=== PATIENT | female | born 1960 | race Caucasian/White ===

== ENCOUNTER → 2017-09-05 | Outpatient (CLI) | payer OTHER ==
[~2017-09-05] MED LIST: B-12 INJ; CIPR500T78 PO; EP1A IM; HORMONE CREAM; LISI10TA PO; MULT-963 PO; STOMACH PILL
--- NOTE | 2017-09-05 19:25 | Diagnostic Imaging Report ---
INDICATION: Renal cyst TECHNIQUE: Multiple real-time grayscale sonographic images were obtained of the kidneys. COMPARISON: 09/04/2016 FINDINGS: RIGHT KIDNEY: 8.6 x 3.7 x 4.0 cm. LEFT KIDNEY: 9.4 x 5.7 x 6.9 cm. Hypoechoic mass in the inferior pole of the right kidney is present. Margins are slightly indistinct. This is measuring larger currently at 1.8 x 2.7 x 1.7 cm, previously 1.4 x 1.0 x 1.1 cm. No suggestion for hydronephrosis. The renal parenchyma is otherwise thin involving both kidneys. URINARY BLADDER: Unremarkable in appearance. Bilateral ureteral jets are present. IMPRESSION: 1. Hypoechoic mass in the right kidney measuring larger from prior study. This may be reflective of a cyst. However, given increase in size and somewhat thick walled appearance, correlation with imaging such as CT and/or MRI with contrast recommended. Dictated by: Dictated on workstation # [id number]
== END ==
LOC: RAD 17:23
PROVIDERS: ATTEND Family Medicine
DX: N28.89 Other specified disorders of kidney and ureter (principal)
CPT/HCPCS: 76770

== ENCOUNTER → 2017-09-11 | Outpatient (CLI) | payer OTHER ==
[~2017-09-11] MED LIST changes: +IOHEXOL 350 MG/ML 100 ML (OMNIPAQUE 350) VIAL IV ONE; +NS 100 ML (IVPB) BAG IV ONE
[2017-09-11 08:40] LABS: BLOOD UREA NITROGEN 13 MG/DL (7-18); BUN/CREATININE RATIO 15; CREATININE SERUM 0.84 MG/DL (0.60-1.30); GFR ESTIMATED > 60
--- NOTE | 2017-09-11 14:23 | Diagnostic Imaging Report ---
PROCEDURE: CT abdomen with contrast only. TECHNIQUE: Multiple contiguous axial images were obtained through the abdomen after the administration of intravenous contrast. INDICATION: Enlarging hypoechoic mass in the right kidney. 100 mL of Omnipaque-350 is administered intravenously. FINDINGS: The hypoechoic lesion seen in the right kidney on recent ultrasound appears to represent a parapelvic cyst with no evidence of solid component seen. It measures 1.5 x 1.8 x 2.6 cm in size. There is symmetric parenchymal enhancement and contrast excretion. There is no hydronephrosis in the kidneys. The lung bases demonstrate no significant abnormality. The liver, the gallbladder, the pancreas, the spleen, and the adrenal glands appear unremarkable. The abdominal aorta is normal in caliber. No para-aortic significantly enlarged lymph node is seen. There is a periumbilical tiny fat-containing hernia. The appendix is normal. Moderate amount of fecal material in the colon is seen. The osseous structures appear grossly unremarkable. IMPRESSION: A 2.6 cm lower pole right renal parapelvic cyst is seen. No solid mass is identified. Dictated by: Dictated on workstation # [id number]
== END ==
LOC: RAD 08:04
PROVIDERS: ATTEND Family Medicine
DX: N28.1 Cyst of kidney, acquired (principal)
CPT/HCPCS: 36415; 74160; 82565; 84520

== ENCOUNTER → 2018-07-31 | Outpatient (CLI) | payer OTHER ==
[~2018-07-31] MED LIST changes: -IOHEXOL 350 MG/ML 100 ML (OMNIPAQUE 350) VIAL IV ONE; -NS 100 ML (IVPB) BAG IV ONE
--- NOTE | 2018-07-31 14:26 | Diagnostic Imaging Report ---
PROCEDURE: US Renal Bilateral. INDICATION: Renal cyst. TECHNIQUE: Multiple real-time grayscale sonographic images were obtained of the kidneys. COMPARISON: 09/05/2017. FINDINGS: RIGHT KIDNEY: 9.8 x 4.7 x 5.3 cm. LEFT KIDNEY: 8.6 x 4.9 x 4.0 cm. Rounded hypoechoic mass in the inferior pole measures 16 x 10 x 15 mm. Previously measured 27 x 18 x 17 mm, appearing smaller. Renal parenchyma is otherwise unremarkable. No hydronephrosis. URINARY BLADDER: Unremarkable appearance. The right ureteral jet is visualized. Nonvisualization of the left ureteral jet. IMPRESSION: 1. Hypoechoic mass of the right kidney persisting but does appear to be slightly smaller from prior study. Favoring probable cyst. Dictated by: Dictated on workstation # [id number]
== END ==
LOC: RAD 13:30
PROVIDERS: ATTEND Family Medicine
DX: N28.89 Other specified disorders of kidney and ureter (principal); N28.1 Cyst of kidney, acquired
CPT/HCPCS: 76770

== ENCOUNTER 2019-07-15 05:40 | Outpatient (CLI) | payer OTHER ==
[~2019-07-15] VITALS: Ht 162 cm; Wt 72.7 kg
[2019-07-15] MEDS ORDERED: PANT40TA3 PO (13:36)
[2019-07-15] MEDS ORDERED: LISI10TA2 PO (13:36)
[2019-07-15] MEDS ORDERED: THYR16.2 PO (13:36)
[2019-07-15] MEDS ORDERED: MULT-178 PO (13:36)
[2019-07-15] MEDS ORDERED: ADRENAL PO (13:36)
== END 2019-07-15 13:37 | disposition home or self-care (01) ==
LOC: PREOP 05:40
PROVIDERS: ATTEND Surgery
DX: Z01.818 Encounter for other preprocedural examination (principal)

== ENCOUNTER 2019-07-22 09:57 | Day surgery (SDC) | payer OTHER ==
[~2019-07-22] VITALS: Ht 162.6 cm; Wt 72.7 kg
[2019-07-22] VITALS (7 sets, daily range): BP systolic 105–138; BP diastolic 70–83
[~2019-07-22 09:57] MED LIST changes: +ADRENAL PO; +LISI10TA2 PO; +MULT-178 PO; +PANT40TA3 PO; +THYR16.2 PO
[2019-07-22] MEDS ORDERED: LACTATED RINGERS 1,000 ML IV STA (10:07)
[2019-07-22] MEDS ORDERED: HURRICAINE EXT TUBE (BENZOCAINE) XX PRN (10:15)
[2019-07-22] MEDS ORDERED: LACTATED RINGERS 1,000 ML IV ONE (10:18)
[2019-07-22] MEDS ORDERED: MIDAZOLAM 2 MG/2 ML (VERSED) VIAL ONE (11:29)
[2019-07-22] MEDS ORDERED: PROPOFOL INJECTION 50 ML IV ONE (11:29)
--- NOTE | 2019-07-22 11:36 | Progress Note-Pre Operative ---
Pre-Operative Progress Note H&P Reviewed The H&P was reviewed, patient examined and no changes noted. Date Seen by Provider: Jul 22, 2019 Time Seen by Provider: 11:00 Date H&P Reviewed: Jul 22, 2019 Time H&P Reviewed: 11:00 Pre-Operative Diagnosis: gerd, epigastric abd pain JAZMINE CHRISTOPHER DO Jul 22, 2019 11:36
--- NOTE | 2019-07-22 11:42 | Progress Note-Post Operative ---
Post-Operative Progess Note Surgeon (s)/Policy Writer Sales (s) Surgeon JAZMINE CHRISTOPHER DO Policy Writer Sales: na Pre-Operative Diagnosis gerd, epigastric abd pain Post-Operative Diagnosis duodenitis, gastric polyps, small hiatal hernia Procedure & Operative Findings Date of Procedure 07/22/19 Procedure Performed/Findings egd c biopsies Anesthesia Type per portable router operator Estimated Blood Loss Estimated blood loss (mL): scant Specimens/Packing Specimens Removed duodenum , antrum, gastric polyp, ge JAZMINE CHRISTOPHER DO Jul 22, 2019 11:42
--- NOTE | 2019-07-22 11:43 | Discharge Inst-Simple/Standard ---
Discharge Inst-Standard Patient Instructions/Follow Up Plan of Care/Instructions/FU: 2 weeks Akil Activity as Tolerated: Yes Discharge Diet: Regular Diet JAZMINE CHRISTOPHER DO Jul 22, 2019 11:43
--- NOTE | 2019-07-22 12:51 | Anesthesia-General Post-Op ---
MAC Patient Condition Mental Status/LOC: Same as Preop Cardiovascular: Satisfactory Nausea/Vomiting: Absent Respiratory: Satisfactory Pain: Controlled Complications: Absent Post Op Complications Complications None Follow Up Care/Instructions Patient Instructions None needed. Anesthesiology Discharge Order Discharge Order Patient is doing well, no complaints, stable vital signs, no apparent adverse anesthesia problems. No complications reported per nursing. AKIKO ALBERT CRNA Jul 22, 2019 12:51
--- NOTE | 2019-07-22 16:04 | OPERATIVE REPORT ---
DATE OF SERVICE: 07/22/2019 PREOPERATIVE DIAGNOSES: Gastroesophageal reflux disease and epigastric abdominal pain. POSTOPERATIVE DIAGNOSES: Duodenitis, gastric polyp and small hiatal hernia. PROCEDURE: EGD with biopsies. SURGEON: Jazmine Barnard DO ANESTHESIA: Per SYSTEM TECHNOLOGIST. ESTIMATED BLOOD LOSS: Scant. COMPLICATIONS: None. SPECIMENS: Duodenum antrum and gastric polyp at GE junction. INDICATIONS: The patient is a 59-year-old female with epigastric abdominal pain, reflux symptoms. She understands risks and benefits of procedure and wished to proceed with procedure. Consent was signed and on the chart. DESCRIPTION OF PROCEDURE: The patient was taken to the endoscopy suite, placed in left lateral recumbent position. Timeout was performed. Scope was inserted in mouth, down the esophagus, stomach and into the duodenum without difficulty. There were no polyps, masses or ulcerations within the second portion of the duodenum. Scope was slowly retracted back to the first portion, which had some slight erythematous changes, which biopsies were obtained. Scope was then slowly retracted back into the stomach where it was further insufflated. Slight erythematous changes in the biopsy of the antrum was obtained. No polyps, masses or ulcerations in the duodenum, but in the remainder of the stomach a large portion of gastric polyps of varying sizes were obtained. Biopsy of the gastric polyp was obtained. Scope was retroflexed noting a small hiatal hernia, no other pathology noted. Scope was returned to its normal position, slowly withdrawn to the distal esophagus. There were no polyps, masses or ulcerations in the GE junction. Biopsy of the GE junction was obtained. Scope was then slowly retracted back to completely remove noting no other pathology. The patient tolerated procedure well without any complications. She was taken to recovery room in stable condition. RECOMMENDATIONS: We will keep medications as the same at this time. We will await biopsy results. Further recommendations pending biopsy results. Job ID: [id number] DocumentID: [id number] Dictated Date: 07/22/2019 11:47:29 Dinkey Brakeman Date: 07/22/2019 16:03:09 Dictated By: JAZMINE BARNARD DO
== END 2019-07-22 12:40 | disposition home or self-care (01) ==
LOC: ENDO 09:57
PROVIDERS: ATTEND Surgery
DX: K21.0 Gastro-esophageal reflux disease with esophagitis (principal); K29.80 Duodenitis without bleeding; K31.7 Polyp of stomach and duodenum; K31.89 Other diseases of stomach and duodenum; K44.9 Diaphragmatic hernia without obstruction or gangrene; I10 Essential (primary) hypertension; J30.9 Allergic rhinitis, unspecified; Z88.5 Allergy status to narcotic agent; Z88.2 Allergy status to sulfonamides; Z79.899 Other long term (current) drug therapy; Z82.49 Family history of ischemic heart disease and other diseases of the circulatory system; Z80.9 Family history of malignant neoplasm, unspecified; Z82.3 Family history of stroke

== ENCOUNTER → 2019-08-12 | Outpatient (CLI) | payer OTHER ==
--- NOTE | 2019-08-12 15:15 | Diagnostic Imaging Report ---
PROCEDURE: US Renal Bilateral. TECHNIQUE: Multiple real-time grayscale images were obtained over the kidneys in various projections bilaterally. INDICATION: Right renal cyst, follow-up. COMPARISON: Correlation is made with prior renal ultrasound from 07/31/2018. FINDINGS: Right kidney measures 8.9 x 5.0 x 4.0 cm, and the left kidney measures 9.5 x 5.3 x 4.1 cm. A cyst in the mid to lower aspect of the right kidney measures 2.3 x 1.5 x 1.8 cm. This compares with 1.6 x 1.0 x 1.5 cm on exam one year earlier. No other renal masses are seen. No calculi or hydronephrosis is identified. Urinary bladder is unremarkable, although the right ureteral jet was not visualized. IMPRESSION: There has been some increase in size of the right renal cyst since examination one year earlier. No calculi or hydronephrosis is detected. Dictated by: Dictated on workstation # [id number]
== END ==
LOC: RAD 14:29
PROVIDERS: ATTEND Family Medicine
DX: N20.0 Calculus of kidney (principal)
CPT/HCPCS: 76770

== ENCOUNTER → 2020-03-24 | Outpatient (CLI) | payer OTHER ==
--- NOTE | 2020-03-24 17:12 | Diagnostic Imaging Report ---
CLINICAL INDICATION: Patient with renal cysts. Follow-up exam. EXAM: Ultrasound of both kidneys. COMPARISON: Ultrasound of both kidneys dated 08/12/2019. FINDINGS: There is no significant change to the cyst involving the inferior portion of the right kidney which measures 2.2 cm in greatest dimension compared to prior study measured at 2.3 cm in greatest dimension. Otherwise, both kidneys are normal in size, shape, echogenicity and cortical thickness without hydronephrosis, stones, or other focal lesions with the right and left kidneys measuring 8.9 cm and 10.3 cm in their craniocaudal dimensions, respectively. The bladder is fluid-filled with no gross abnormality. The left ureteral jet is seen. The right ureter jet is not seen. IMPRESSION: There is no significant change to the right renal cyst. Otherwise, unremarkable bilateral renal ultrasound. Dictated by: Dictated on workstation # [id number]
== END ==
LOC: RAD 14:19
PROVIDERS: ATTEND Family Medicine
DX: N28.1 Cyst of kidney, acquired (principal)
CPT/HCPCS: 76770

== ENCOUNTER → 2021-04-05 | Outpatient (CLI) | payer OTHER ==
[~2021-04-05] MED LIST changes: -LISI10TA2 PO; +LISI10TA25 PO; -PANT40TA3 PO; +PANT40TA52 PO
--- NOTE | 2021-04-05 17:00 | Diagnostic Imaging Report ---
EXAMINATION: US Retroperitoneal Complete. TECHNIQUE: Multiple real-time grayscale images were obtained over the kidneys in various projections bilaterally. HISTORY: Renal cyst. COMPARISON: Renal ultrasound 03/24/2020. FINDINGS: The right kidney demonstrates normal echogenicity and cortical thickness. The right kidney measures 10.9 x 4.7 x 5.8 cm. No hydronephrosis. Stable renal sinus cyst measuring 2.4 cm. The left kidney demonstrates normal echogenicity and cortical thickness. The left kidney measures 10.6 x 5.1 x 6.0 cm. No hydronephrosis. The urinary bladder is normal. IMPRESSION: 1. Stable right renal sinus cyst measuring 2.4 cm. 2. Otherwise unremarkable appearance of the kidneys without hydronephrosis. Dictated by: Dictated on workstation # [id number]
== END ==
LOC: RAD 14:45
PROVIDERS: ATTEND Family Medicine
DX: N28.1 Cyst of kidney, acquired (principal)
CPT/HCPCS: 76770

== ENCOUNTER → 2022-03-29 | Outpatient (CLI) | payer OTHER ==
--- NOTE | 2022-03-29 10:45 | Diagnostic Imaging Report ---
PROCEDURE: US Renal Bilateral. TECHNIQUE: Multiple Real-time grayscale images were obtained over the kidneys in various projections bilaterally. INDICATION: Renal cyst. COMPARISON: 04/05/2021. FINDINGS: The right kidney measures 10.3 cm, unchanged from prior. A pelvic cyst measures 2.2 cm in long axis, previously 2.4 cm. There are likely additional smaller parapelvic cysts bilaterally but no yonas hydronephrosis. No echogenic or shadowing stone. The cortical thickness and parenchymal echotexture are stable. No perinephric or subcapsular collection. IMPRESSION: Likely mild bilateral renal parapelvic cysts with the dominant right renal pelvic cyst smaller than on the prior exam. No findings of neoplasm or stone disease. Dictated by: Dictated on workstation # [id number]
== END ==
LOC: RAD 08:26
PROVIDERS: ATTEND Family Medicine
DX: N28.1 Cyst of kidney, acquired (principal)
CPT/HCPCS: 76770

== ENCOUNTER → 2022-06-14 | Outpatient (CLI) | payer OTHER ==
--- NOTE | 2022-06-14 09:18 | Diagnostic Imaging Report ---
INDICATION: Epigastric pain. PROCEDURE: Ultrasound abdomen complete. TECHNIQUE: Multiple real-time grayscale images were obtained of the abdomen in various projections. FINDINGS: Liver is normal in size 14.5 cm. Portal vein is patent and shows normal direction of flow. No discrete liver mass is detected. Gallbladder is without stones or sludge. There is no wall thickening or biliary ductal dilatation. Pancreas was obscured. Spleen is normal size at 9 cm. Aorta is obscured. IVC is unremarkable. Right kidney measures 9.9 cm in length and the left kidney measures 10.1 cm in length. There is a cyst in the mid to lower pole of the right kidney approximately 2.6 x 1.2 cm. No calculi are seen. There is no hydronephrosis. There is no ascites. IMPRESSION: 1. No evidence of cholelithiasis or acute cholecystitis. 2. Right renal cyst. 3. The study is otherwise unremarkable. Dictated by: Dictated on workstation # [id number]
== END ==
LOC: RAD 07:38
PROVIDERS: ATTEND Family Medicine
DX: K21.9 Gastro-esophageal reflux disease without esophagitis (principal); N28.1 Cyst of kidney, acquired
CPT/HCPCS: 76700